=== PATIENT | female | born 1950 | race Caucasian/White ===

== ENCOUNTER 2018-02-09 08:06 | Day surgery (SDC) | payer MEDICARE ==
[~2018-02-09] VITALS: Ht 157.5 cm; Wt 61.4 kg
[2018-02-09 08:48] VITALS: BP 147/67
[2018-02-09] MEDS ORDERED: ROSU5TAB PO (08:59)
[2018-02-09] MEDS ORDERED: ASPI-621 PO (08:59)
[2018-02-09] MEDS ORDERED: LISI-170 PO (08:59)
[2018-02-09] MEDS ORDERED: CHOL100011 PO (08:59)
[2018-02-09] MEDS ORDERED: NITR0.4T28 SL (08:59)
[2018-02-09] MEDS ORDERED: VITA400C43 PO (08:59)
[2018-02-09] MEDS ORDERED: KRIL500C PO (08:59)
[2018-02-09] MEDS ORDERED: LACT1CAP35 PO (08:59)
[2018-02-09] MEDS ORDERED: MIDAZOLAM 1 MG/ML, 2ML ONE (09:42)
[2018-02-09] MEDS ORDERED: NITROGLYCERIN 5 MG/ML, 10ML ONE (09:42)
[2018-02-09] MEDS ORDERED: TICAGRELOR 90 MG TABLET ONE (09:42)
[2018-02-09] MEDS ORDERED: HEPARIN 1,000 UNITS/ML, 10ML ONE (09:42)
[2018-02-09] MEDS ORDERED: BIVALIRUDIN 250 MG ONE (09:42)
[2018-02-09] MEDS ORDERED: VERAPAMIL 2.5 MG/ML, 2ML ONE (09:42)
[2018-02-09] MEDS ORDERED: FENTANYL PF 100 MCG/2ML ONE (09:42)
[2018-02-09] MEDS ORDERED: LIDOCAINE 2%, 2ML ONE (09:43)
[2018-02-09] MEDS ORDERED: SODIUM CHLORIDE 0.9% 1,000 ML IV SCH (10:37)
[2018-02-09 10:55] VITALS: BP 121/70
== END 2018-02-09 17:50 | disposition home or self-care (01) ==
LOC: CACL 08:06 → 5SO 10:52 → CACL 17:50
PROVIDERS: ATTEND Internal Medicine Cardiovascular Disease
DX: I25.10 Atherosclerotic heart disease of native coronary artery without angina pectoris (principal); I10 Essential (primary) hypertension; K21.9 Gastro-esophageal reflux disease without esophagitis; H90.3 Sensorineural hearing loss, bilateral; Z87.39 Personal history of other diseases of the musculoskeletal system and connective tissue; Z85.3 Personal history of malignant neoplasm of breast; Z88.1 Allergy status to other antibiotic agents; Z88.8 Allergy status to other drugs, medicaments and biological substances
CPT/HCPCS: 93458; 93571; 93572; 99156; 99157; C1769; C1894; J1644; J2250; J3010; J3490; Q9967; J0583